=== PATIENT | female | born 1990 | race African-American/Black ===

== ENCOUNTER 2017-01-13 10:37 | Emergency (ER) | payer MEDICAID, SELFPAY ==
--- NOTE | 2017-01-13 10:57 | EDM.PDOC ---
ED HPI GENERAL MEDICAL PROBLEM - General Chief Complaint: Abdominal Pain Stated Complaint: STOMACH CRAMPS Time Seen by Provider: 01/13/17 10:56 Source of Information: Reports: Patient History Limitations: Reports: No Limitations - History of Present Illness INITIAL COMMENTS - FREE TEXT/NARRATIVE: HISTORY AND PHYSICAL: []26-year-old female presenting with abdominal cramping bloating and gas History of Present Illness: []Last menstrual cycle was approximately one month ago. Generally does not have cramping when her period is going to start. Review of Systems: As per history of present illness and below otherwise all systems reviewed and negative. Past medical history: As per history of present illness and as reviewed below otherwise noncontributory. Surgical history: As per history of present illness and as reviewed below otherwise noncontributory. Social history: No reported history of drug or alcohol abuse. Family history: As per history of present illness and as reviewed below otherwise noncontributory. Physical exam: HEENT: Atraumatic, normocehpalic, pupils reactive, negative for conjunctival pallor or scleral icterus, mucous membranes moist, throat clear, neck supple, nontender, trachea midline. Lungs: Clear to auscultation, breath sounds equal bilaterally, chest non tender. Heart: S1S2, regular, negative for clicks, rubs, or JVD. Abdomen: Soft, nondistended, nontender. Negative for masses or hepatossplenmegaly. Mild discomfort with costovertebral tenderness. Pelvis: Stable nontender. Genitourinary: Deferred. Rectal: Deferred Extremities: Atraumatic, negative for cords or calf pain. Neurovascular unremarkable. Neuro: Awake, alert, oriented. Cranial nerves II through XII unremarkable. Cerebellum unremarkable. Motor and sensory unremarkable throughout. Exam nonfocal. Patient states she has no cramping at this time she did let a lot of gas out and is feeling fine. Have discussed with her and her significant other that she is . as her last period was one month ago with the approximately 4 weeks . Patient states"my previous CORPORATE ANALYST has moved out of state and at this time we are planning to have a home with a iron pourer" Have suggested the patient start [id number] vitamins. Any further difficulties would recommend she see an CORPORATE ANALYST. Diagnostics: [Urine urine culture hCG] Therapeutics: [] Impression: [#1 gas pains #2 ] Plan: [#1 ( vitamins #2 she try gatz-inj-klcjwwk products such as Beano.] Definitive disposition and diagnosis as appropriate pending reevaluation and review of above. Lower Abdominal Pain Score (Numeric/FACES): 5 - Related Data Allergies Allergy/AdvReac Type Severity Reaction Status Date / Time morphine Allergy Disorientat Verified 01/13/17 10:47 ion Home Meds: Home Meds . [No Known Home Meds] 11/21/15 [History] Past Medical History - Past Health History Medical/Surgical History: Denies Medical/Surgical History HEENT History: Reports: None Cardiovascular History: Reports: None Respiratory History: Reports: None Gastrointestinal History: Reports: None Genitourinary History: Reports: None CORPORATE ANALYST History: Reports: Musculoskeletal History: Reports: None Neurological History: Reports: None Psychiatric History: Reports: None Endocrine/Metabolic History: Reports: None Hematologic History: Reports: None Immunologic History: Reports: None Oncologic (Cancer) History: Reports: None Dermatologic History: Reports: None - Infectious Disease History Infectious Disease History: Reports: Chicken Pox - Past Surgical History Head Surgeries/Procedures: Reports: None Female Surgical History: Reports: None Social & Family History - Family History Family Medical History: Noncontributory - Tobacco Use Smoking Status *Q: Never Smoker Second Hand Smoke Exposure: No - Caffeine Use Caffeine Use: Reports: None - Recreational Drug Use Recreational Drug Use: No ED ROS GENERAL - Review of Systems Review Of Systems: ROS reveals no pertinent complaints other than HPI. ED EXAM, GI/ABD - Physical Exam Exam: See Below (See dictation) Course - Vital Signs Last Recorded V/S: Last Vital Signs Temp 36.7 C 01/13/17 10:47 Pulse 71 01/13/17 11:39 Resp 18 01/13/17 11:39 BP 110/54 L 01/13/17 11:39 Pulse Ox 100 01/13/17 11:39 - Orders/Labs/Meds Orders: Active Orders 24 hr Category Date Time Status CULTURE URINE [RM] Stat Lab 01/13/17 10:54 Received Labs: Laboratory Tests 01/13/17 01/13/17 Range/Units 10:54 10:54 Urine Color YELLOW Urine Appearance CLEAR Urine pH 6.5 (5.0-8.0) Ur Specific [place] 1.015 (1.001-1.035) Urine Protein NEGATIVE (NEGATIVE) mg/dL Urine Glucose (UA) NEGATIVE (NEGATIVE) mg/dL Urine Ketones NEGATIVE (NEGATIVE) mg/dL Urine Occult Blood NEGATIVE (NEGATIVE) Urine Nitrite NEGATIVE (NEGATIVE) Urine Bilirubin NEGATIVE (NEGATIVE) Urine Urobilinogen 0.2 (<2.0) EU/dL Ur Leukocyte Esterase NEGATIVE (NEGATIVE) Urine RBC 0-1 (0-2/HPF) Urine WBC 0-1 (0-5/HPF) Ur Epithelial Cells OCCASIONAL (NONE-FEW) Urine Bacteria RARE (NEGATIVE) Urine HCG, Qual POSITIVE (NEGATIVE) Departure - Departure Time of Disposition: 11:50 Disposition: Home, Self-Care 01 Condition: Good Clinical Impression: Positive test Abdominal pain Qualifiers: Abdominal location: generalized Qualified Code(s): R10.84 - Generalized abdominal pain - Discharge Information Instructions: Abdominal Pain, Adult, [id number] Referrals: PCP,None [Primary Care Provider] - Forms: ED Department Discharge Additional Instructions: The following information is given to patients seen in the emergency department who are being discharged to home. This information is to outline your options for follow-up care. We provide all patients seen in our emergency department with a follow-up referral. The need for follow-up, as well as the timing and circumstances, are variable depending upon the specifics of your emergency department visit. If you don't have a primary care physician on staff, we will provide you with a referral. We always advise you to contact your personal physician following an emergency department visit to inform them of the circumstance of the visit and for follow-up with them and/or the need for any referrals to a consulting specialist. The emergency department will also refer you to a specialist when appropriate. This referral assures that you have the opportunity for followup care with a specialist. All of these measure are taken in an effort to provide you with optimal care, which includes your followup. Under all circumstances we always encourage you to contact your private physician who remains a resource for coordinating your care. When calling for followup care, please make the office aware that this follow-up is from your recent emergency room visit. If for any reason you are refused follow-up, please contact the [facility] emergency department at and asked to speak to the emergency department charge nurse. Begin xfhq-qqc-awdbuna vitamins Try wilr-zwt-pllyffh product for your gas pains such as Beano Any difficulties with your please contact CORPORATE ANALYST services - My Orders Last 24 Hours: My Active Orders 01/13/17 10:54 CULTURE URINE [] Stat - Assessment/Plan Last 24 Hours: My Active Orders 01/13/17 10:54 CULTURE URINE [] Stat
[2017-01-13 12:30] VITALS: BP 176/86
== END 2017-01-13 13:24 | disposition home or self-care (01) ==
LOC: MW.ED 10:37
DX: R14.1 Gas pain (principal); R10.84 Generalized abdominal pain; Z32.01 Encounter for pregnancy test, result positive; Z88.5 Allergy status to narcotic agent
CPT/HCPCS: 36415; 81001; 81025; 84702; 87086; 99283; 99284

== ENCOUNTER 2018-07-31 16:18 | Emergency (ER) | payer MEDICAID ==
--- NOTE | 2018-07-31 16:32 | EDM.PDOC ---
ED HPI GENERAL MEDICAL PROBLEM - General Chief Complaint: Respiratory Problem Stated Complaint: FEELING FAINT 36 WKS PREG Time Seen by Provider: 07/31/18 16:26 Source of Information: Reports: Patient History Limitations: Reports: No Limitations - History of Present Illness INITIAL COMMENTS - FREE TEXT/NARRATIVE: History of present illness: []Patient is 31 weeks complaining of bilateral hand swelling and pain that is burning and tingling. Patient Mentioned she was short of breath and she was brought back to the ED as a 911. Review of systems: As per history of present illness and below otherwise all systems reviewed and negative. Past medical history: As per history of present illness and as reviewed below otherwise noncontributory. Surgical history: As per history of present illness and as reviewed below otherwise noncontributory. Social history: No reported history of drug or alcohol abuse. Family history: As per history of present illness and as reviewed below otherwise noncontributory. Physical exam: General: Well developed, well nourished in NAD HEENT: Atraumatic, normocephalic, pupils reactive, negative for conjunctival pallor or scleral icterus, mucous membranes moist, throat clear, neck supple, nontender, trachea midline. Lungs: Clear to auscultation, breath sounds equal bilaterally, chest nontender. No rhonchi or wheezing Heart: S1S2, regular, negative for clicks, rubs, or JVD. Abdomen: 31 week abdomen, NABS, Soft, nondistended, nontender. Negative for masses or hepatosplenomegaly. Negative for costovertebral tenderness. Pelvis: Stable nontender. Genitourinary: Deferred. Rectal: Deferred. Extremities: Atraumatic, negative for cords or calf pain. Neurovascular unremarkable. Neuro: Awake, alert, oriented. Cranial nerves II through XII unremarkable. Cerebellum unremarkable. Motor and sensory unremarkable throughout. Exam nonfocal. Skin:warm and dry Diagnostics: Offered patient had CT of her chest to rule out a blood clot. and she declined Therapeutics: Cock-up splint ED Course: Stable Impression: Carpal tunnel syndrome in Prescriptions: Plan: Ice, elevation, wear splint, follow up with DEBT RECOVERY OFFICER return if symptoms worsen. Definitive disposition and diagnosis as appropriate pending reevaluation and review of above. - Related Data Allergies Allergy/AdvReac Type Severity Reaction Status Date / Time morphine Allergy Disorientat Verified 07/31/18 16:22 ion Home Meds: Home Meds . [No Known Home Meds] 11/21/15 [History] Past Medical History - Past Health History Medical/Surgical History: Denies Medical/Surgical History HEENT History: Reports: None Cardiovascular History: Reports: None Respiratory History: Reports: None Gastrointestinal History: Reports: None Genitourinary History: Reports: None PAINT STRIPPER History: Reports: Musculoskeletal History: Reports: None Neurological History: Reports: None Psychiatric History: Reports: None Endocrine/Metabolic History: Reports: None Hematologic History: Reports: None Immunologic History: Reports: None Oncologic (Cancer) History: Reports: None Dermatologic History: Reports: None - Infectious Disease History Infectious Disease History: Reports: Chicken Pox - Past Surgical History Head Surgeries/Procedures: Reports: None Female Surgical History: Reports: None Social & Family History - Family History Family Medical History: Noncontributory - Caffeine Use Caffeine Use: Reports: None ED ROS GENERAL - Review of Systems Review Of Systems: ROS reveals no pertinent complaints other than HPI. ED EXAM, GENERAL - Physical Exam Exam: See Below (See history of present illness) Course - Vital Signs Last Recorded V/S: Last Vital Signs Temp 97.4 F 07/31/18 16:22 Pulse 112 H 07/31/18 16:22 Resp 16 07/31/18 16:22 BP 125/56 L 07/31/18 16:22 Pulse Ox 98 07/31/18 16:22 Departure - Departure Time of Disposition: 16:32 Disposition: Home, Self-Care 01 Condition: Good Clinical Impression: Carpal tunnel syndrome during - Discharge Information *PRESCRIPTION DRUG MONITORING PROGRAM REVIEWED*: No *COPY OF PRESCRIPTION DRUG MONITORING REPORT IN PATIENT TEO: No Referrals: PCP,Unknown [Primary Care Provider] - Additional Instructions: The following information is given to patients seen in the emergency department who are being discharged to home. This information is to outline your options for follow-up care. We provide all patients seen in our emergency department with a follow-up referral. The need for follow-up, as well as the timing and circumstances, are variable depending upon the specifics of your emergency department visit. If you don't have a primary care physician on staff, we will provide you with a referral. We always advise you to contact your personal physician following an emergency department visit to inform them of the circumstance of the visit and for follow-up with them and/or the need for any referrals to a consulting specialist. The emergency department will also refer you to a specialist when appropriate. This referral assures that you have the opportunity for follow-up care with a specialist. All of these measure are taken in an effort to provide you with optimal care, which includes your follow-up. Under all circumstances we always encourage you to contact your private physician who remains a resource for coordinating your care. When calling for follow-up care, please make the office aware that this follow-up is from your recent emergency room visit. If for any reason you are refused follow-up, please contact the [facility] Emergency Department at and asked to speak to the emergency department charge nurse. Follow-up with women's health. Ice to wrist, where splint at night and as much as possible return if worse. [facility] Primary Care - Women's Health [address] [place] [id number]
[2018-07-31 17:02] VITALS: BP 104/62
== END 2018-07-31 17:02 | disposition home or self-care (01) ==
LOC: MW.ED 16:18
DX: O99.353 Diseases of the nervous system complicating pregnancy, third trimester (principal); G56.03 Carpal tunnel syndrome, bilateral upper limbs; Z3A.31 31 weeks gestation of pregnancy
CPT/HCPCS: 99283

== ENCOUNTER 2018-09-27 05:03 | Inpatient (IN) | payer MEDICAID ==
[2018-09-27] MEDS ORDERED: Sodium Chloride 0.9% 10 ML Syringe FLUSH PRN (05:10)
[2018-09-27] MEDS ORDERED: Sodium Chloride 0.9% 2.5 ML Syringe FLUSH PRN (05:10)
[2018-09-27] MEDS ORDERED: Sodium Chloride 0.9% 10 ML SDV IV PRN (05:10)
[2018-09-27] MEDS ORDERED: Citric Acid/Sodium Citrate Solution 30 ML Cup PO ONE (05:10)
[2018-09-27] MEDS ORDERED: Oxytocin/0.9 % Sodium Chloride 30 UNIT/500 ML BAG IV SCH (05:15)
[2018-09-27] MEDS: Lactated Ringers 1,000 ML IV SCH ×2 (05:52→07:09)
--- NOTE | 2018-09-27 07:00 | PCM.PREANE ---
Preanesthetic Assessment - Anesthesia/Transfusion/Family Hx Anesthesia History: Prior Anesthesia Without Reaction Family History of Anesthesia Reaction: No Transfusion History: No Prior Transfusion(s) Intubation History: Unknown - Review of Systems General: No Symptoms Pulmonary: No Symptoms Cardiovascular: No Symptoms Gastrointestinal: No Symptoms Neurological: No Symptoms Other: Reports: None - Physical Assessment Height: 5 ft Weight: 90.265 kg ASA Class: 2 Mental Status: Alert & Oriented x3 Airway Class: Mallampati = 2 Dentition: Reports: Normal Dentition Thyro-Mental Finger Breadths: 3 Mouth Opening Finger Breadths: 3 ROM/Head Extension: Full Lungs: Clear to Auscultation, Normal Respiratory Effort Cardiovascular: Regular Rate, Regular Rhythm - Lab Values: Laboratory Last Values WBC 11.73 K/uL (4.0-11.0) H 09/27/18 05:35 RBC 4.87 M/uL (4.30-5.90) 09/27/18 05:35 Hgb 11.5 g/dL (12.0-16.0) L 09/27/18 05:35 Hct 36.2 % (36.0-46.0) 09/27/18 05:35 MCV 74.3 fL (80.0-98.0) L 09/27/18 05:35 MCH 23.6 pg (27.0-32.0) L 09/27/18 05:35 MCHC 31.8 g/dL (31.0-37.0) 09/27/18 05:35 RDW Std Deviation 49.4 fl (28.0-62.0) 09/27/18 05:35 RDW Coeff of Candido 18 % (11.0-15.0) H 09/27/18 05:35 Plt Count 182 K/uL (150-400) 09/27/18 05:35 Nucleated RBC % 0.0 /100WBC 09/27/18 05:35 Nucleated RBCs # 0 K/uL 09/27/18 05:35 - Allergies Allergies/Adverse Reactions: Allergies Allergy/AdvReac Type Severity Reaction Status Date / Time latex Allergy Itching Verified 09/27/18 06:08 morphine Allergy Disorientat Verified 09/27/18 06:08 ion - Blood Blood Available: No - Anesthesia Plan Pre-Op Medication Ordered: None - Acknowledgements Anesthesia Type Planned: Spinal (general anesthesia back-up plan) PreAnesthesia Questionnaire - Past Health History Medical/Surgical History: Denies Medical/Surgical History HEENT History: Reports: Other (See Below) Other HEENT History: wears glasses Cardiovascular History: Reports: None Respiratory History: Reports: None Gastrointestinal History: Reports: None Genitourinary History: Reports: None FLY RAISER LOCKSTITCH History: Reports: , Spontaneous Musculoskeletal History: Reports: None Neurological History: Reports: None Psychiatric History: Reports: None Endocrine/Metabolic History: Reports: Obesity/BMI 30+ Hematologic History: Reports: None Immunologic History: Reports: None Oncologic (Cancer) History: Reports: None Dermatologic History: Reports: None - Infectious Disease History Infectious Disease History: Reports: Chicken Pox - Past Surgical History Head Surgeries/Procedures: Reports: None HEENT Surgical History: Reports: Oral Surgery, Other (See Below) Other HEENT Surgeries/Procedures: frenulectomy Cardiovascular Surgical History: Reports: None Respiratory Surgical History: Reports: None GI Surgical History: Reports: None Female Surgical History: Reports: None Endocrine Surgical History: Reports: None Neurological Surgical History: Reports: None Musculoskeletal Surgical History: Reports: None Oncologic Surgical History: Reports: None Dermatological Surgical History: Reports: Skin Graft (skin graft- back of rt. shoulder) - SUBSTANCE USE Smoking Status *Q: Never Smoker Recreational Drug Use History: No - HOME MEDS Home Medications: Home Meds Iron 45 mg PO WEEKLY 09/22/18 [History] PNV95/Ferrous Fumarate/FA [ Vitamin Tablet] 1 tab PO DAILY 09/22/18 [ History] - CURRENT (IN HOUSE) MEDS Current Meds: Current Medications Lactated Ringer's (Ringers, Lactated) 1,000 mls @ 500 mls/hr IV BOLUS GIO Last Admin: 09/27/18 05:52 Dose: 500 mls/hr Oxytocin/Sodium Chloride (Oxytocin 30 Unit/500 Ml-Ns) 30 unit in 500 mls @ 250 mls/hr IV TITRATE GIO Sodium Chloride (Saline Flush) 10 ml FLUSH ASDIRECTED PRN PRN Reason: Keep Vein Open Sodium Chloride (Saline Flush) 2.5 ml FLUSH ASDIRECTED PRN PRN Reason: Keep Vein Open Sodium Chloride (Normal Saline) 10 ml IV ASDIRECTED PRN PRN Reason: IV Use Discontinued Medications Citric Acid/Sodium Citrate (Bicitra Solution) 30 ml PO ONETIME ONE Stop: 09/27/18 05:11
[2018-09-27] MEDS ORDERED: fentaNYL 100 MCG/2 ML SDV ONE (07:18)
[2018-09-27] MEDS ORDERED: ePHEDrine 50 MG/ML SDV ONE (08:24)
[2018-09-27] MEDS ORDERED: Oxytocin 10 Units/1 ML SDV ONE (08:24)
[2018-09-27] MEDS ORDERED: Phenylephrine/Normal Saline 100 MCG/ML 10 ML Syringe ONE (08:24)
[2018-09-27] MEDS ORDERED: Methylergonovine 0.2 MG/1 ML Amp ONE (08:33)
[2018-09-27] MEDS ORDERED: Ondansetron 4 MG/2 ML SDV IVPUSH PRN ×2 (09:30→09:39)
[2018-09-27] MEDS ORDERED: Naloxone 0.4 MG/ML Syringe IVPUSH PRN (09:30)
[2018-09-27] MEDS ORDERED: diphenhydrAMINE 50 MG/ML SDV IVPUSH PRN ×2 (09:30→09:39)
[2018-09-27] MEDS ORDERED: Nalbuphine 10 MG/1 ML Vial IVPUSH PRN (09:30)
[2018-09-27] MEDS ORDERED: fentaNYL 100 MCG/2 ML SDV IVPUSH PRN (09:30)
[2018-09-27] MEDS ORDERED: Acetaminophen/oxyCODONE 325-5 MG Tab PO PRN ×2 (09:30→09:39)
[2018-09-27] MEDS ORDERED: Bisacodyl 10 MG Supp RECTAL PRN (09:39)
[2018-09-27] MEDS ORDERED: Lanolin 100% Cream 7 GM Tube TOP PRN (09:39)
[2018-09-27] MEDS ORDERED: Lactated Ringers 1,000 ML IV SCH (09:45)
--- NOTE | 2018-09-27 09:45 | PCM.OPNOTE ---
- General Post-Op/Procedure Note Date of Surgery/Procedure: 09/27/18 Operative Procedure(s): Primary lower segment Findings: Live female delivered at 827am , 7/9 weight pending Pre Op Diagnosis: 27yo @ 39w2d with Breech presentation Post-Op Diagnosis: same Anesthesia Technique: Spinal Primary Surgeon: Buster Soni Fluid Replacement, Intraop: 3,200 Output, Urine Amount: 300 EBL in mLs: 500 Complications: None Condition: Good
[2018-09-27] MEDS: Ketorolac 30 MG/ML SDV IVPUSH SCH ×3 (09:49→21:58)
[2018-09-27] MEDS: Docusate Sodium 100 MG Cap PO SCH (21:59)
--- NOTE | 2018-09-28 03:20 | OR ---
SURGEON: ARIANA ARREAGA DATE OF PROCEDURE:09/27/2018 PREOPERATIVE DIAGNOSES: A 27-year-old G3, P1-0-1-1 at 39 weeks and 2 days, in breech presentation. POSTOPERATIVE DIAGNOSIS: A 27-year-old G3, P1-0-1-1 at 39 weeks and 2 days, in breech presentation. PROCEDURE: Primary lower segment section. IV FLUIDS: 3200. ESTIMATED BLOOD LOSS: 500. URINE OUTPUT: 350. ANESTHESIA: Spinal. FINDINGS: Live female delivered at 8:27 a.m. scores are 7 and 9. Weight is 2910 g. BRIEF HISTORY: The patient is a 27-year-old G2, P1-0-1-1 at 39 weeks and 2 days, who was noted to have breech presentation. The patient was offered an external cephalic version versus a primary . She declined ECV and wanted to proceed with a . She was explained the risks, benefits, and alternatives. She desired to proceed. DESCRIPTION OF PROCEDURE: The patient was taken to the operating room where spinal anesthesia was performed without difficulty. She was prepared and draped in the dorsal supine position with a leftward tilt. A Pfannenstiel skin incision was made with a scalpel and carried down to the fascia with the Bovie. The fascia was incised and extended laterally. The fascia was from the rectus muscles superiorly and inferiorly. The rectus muscle was in the midline down to the level of the pubic symphysis. The peritoneum was entered bluntly. The peritoneum was then stretched upwards and outwards. The bladder reflection was noted. The Sidney retractor was placed. Bladder flap was created. A lower uterine incision was made. The baby was delivered with the breech delivery without difficulty. The cord was clamped and cut. The was handed over to the awaiting biological sciences instructor. The placenta was delivered by manual massage of the uterine fundus. The uterine incision was closed in 2 layers. Hemostasis stasis was noted. The gutters were cleaned. Sidney retractor was removed. The peritoneum was sutured with 2-0 Vicryl. The fascia was closed with 0 Vicryl. The Ly's fascia was closed with plain gut. The skin was closed with 3-0 Monocryl on a Viktor needle. All instrument and pad count were correct x3. The patient tolerated the procedure well, left the OR in stable condition. COURTNEY SIMENTAL /[id number] MTDD
[2018-09-28] MEDS: Ketorolac 30 MG/ML SDV IVPUSH SCH ×2 (03:30→09:35)
--- NOTE | 2018-09-28 08:18 | PCM48HPAN ---
Post Anesthesia Note - EVALUATION WITHIN 48HRS OF ANESTHETIC Vital Signs in Normal Range: Yes Patient Participated in Evaluation: Yes Respiratory Function Stable: Yes Airway Patent: Yes Cardiovascular Function Stable: Yes Hydration Status Stable: Yes Pain Control Satisfactory: Yes Nausea and Vomiting Control Satisfactory: Yes Mental Status Recovered: Yes Resp Rate: 18 - COMMENTS/OBSERVATIONS Free Text/Narrative:: Patient doing well without complaints
[2018-09-28] MEDS: Docusate Sodium 100 MG Cap PO SCH ×2 (09:36→20:54)
--- NOTE | 2018-09-28 10:32 | PCM.PNPP ---
- General Info Date of Service: 09/28/18 Admission Dx/Problem (Free Text): 27yo P2 s/p Primary LTCS POD1 , patient seen at bedside , she denies any complains , she is ambulating voiding and tolerating regular diet Functional Status: Reports: Pain Controlled, Tolerating Diet, Ambulating, Urinating - Review of Systems General: Reports: No Symptoms HEENT: Reports: No Symptoms Pulmonary: Reports: No Symptoms Cardiovascular: Reports: No Symptoms Gastrointestinal: Reports: No Symptoms Genitourinary: Reports: No Symptoms Musculoskeletal: Reports: No Symptoms Skin: Reports: No Symptoms Neurological: Reports: No Symptoms Psychiatric: Reports: No Symptoms - General Info Date of Service: 09/28/18 - Patient Data Vital Signs - Most Recent: Last Vital Signs Temp 36.8 C 09/28/18 07:20 Pulse 106 H 09/28/18 08:00 Resp 18 09/28/18 08:18 BP 108/67 09/28/18 07:20 Pulse Ox 98 09/28/18 08:00 Weight - Most Recent: 90.265 kg I&O - Last 24 Hours: Intake & Output 09/27/18 09/28/18 09/28/18 22:59 06:59 14:59 Output Total 2250 700 Balance -2250 -700 Lab Results - Last 24 Hours: Laboratory Results - last 24 hr 09/27/18 09/28/18 Range/Units 08:28 05:10 Hgb 9.1 L (12.0-16.0) g/dL Hct 28.5 L (36.0-46.0) % Cord VBG pH 7.285 (7.25-7.45) Cord VBG Base Excess -6 (-10--2) Med Orders - Current: Current Medications Bisacodyl (Dulcolax) 10 mg RECTAL ONETIME PRN PRN Reason: Constipation Diphenhydramine HCl (Benadryl) 25 mg IVPUSH Q6H PRN PRN Reason: Itching or Nausea Docusate Sodium (Colace) 100 mg PO BID GIO Last Admin: 09/28/18 09:36 Dose: 100 mg Emollient Ointment (Lansinoh Hpa) 0 gm TOP ASDIRECTED PRN PRN Reason: Sore Nipples Fentanyl (Sublimaze) 50 mcg IVPUSH Q1H PRN PRN Reason: Pain (severe 7-10) Lactated Ringer's (Ringers, Lactated) 1,000 mls @ 500 mls/hr IV BOLUS [facility] Last Admin: 09/27/18 07:09 Dose: 500 mls/hr Oxytocin/Sodium Chloride (Oxytocin 30 Unit/500 Ml-Ns) 30 unit in 500 mls @ 250 mls/hr IV TITRATE [facility] Lactated Ringer's (Ringers, Lactated) 1,000 mls @ 125 mls/hr IV ASDIRECTED [facility] Last Admin: 09/27/18 12:57 Dose: 125 mls/hr Ibuprofen (Motrin) 800 mg PO Q8H PRN PRN Reason: mild pain or fever Nalbuphine HCl (Nubain) 5 mg IVPUSH ASDIRECTED PRN PRN Reason: Itching Ondansetron HCl (Zofran) 4 mg IVPUSH Q6H PRN PRN Reason: Nausea Ondansetron HCl (Zofran) 4 mg IVPUSH Q4H PRN PRN Reason: Nausea/Vomiting Oxycodone/Acetaminophen (Percocet 325-5 Mg) 2 tab PO Q6H PRN PRN Reason: Pain (moderate 4-6) Oxycodone/Acetaminophen (Percocet 325-5 Mg) 1 tab PO Q4H PRN PRN Reason: Pain (moderate 4-6) Oxycodone/Acetaminophen (Percocet 325-5 Mg) 2 tab PO Q4H PRN PRN Reason: Pain (moderate 4-6) Sodium Chloride (Saline Flush) 10 ml FLUSH ASDIRECTED PRN PRN Reason: Keep Vein Open Sodium Chloride (Saline Flush) 2.5 ml FLUSH ASDIRECTED PRN PRN Reason: Keep Vein Open Sodium Chloride (Normal Saline) 10 ml IV ASDIRECTED PRN PRN Reason: IV Use Discontinued Medications Citric Acid/Sodium Citrate (Bicitra Solution) 30 ml PO ONETIME ONE Stop: 09/27/18 05:11 Last Admin: 09/27/18 07:10 Dose: 30 ml Diphenhydramine HCl (Benadryl) 25 mg IVPUSH Q4H PRN PRN Reason: Itching Stop: 09/28/18 09:30 Ephedrine Sulfate (Ephedrine Sulfate) Confirm Administered Dose 50 mg .ROUTE .STK-MED ONE Stop: 09/27/18 08:25 Fentanyl (Sublimaze) Confirm Administered Dose 100 mcg .ROUTE .STK-MED ONE Stop: 09/27/18 07:19 Ketorolac Tromethamine (Toradol) 30 mg IVPUSH Q6H GIO Stop: 09/28/18 09:46 Last Admin: 09/28/18 09:35 Dose: 30 mg Methylergonovine Maleate (Methergine) Confirm Administered Dose 0.2 mg .ROUTE .STK-MED ONE Stop: 09/27/18 08:34 Last Admin: 09/27/18 13:40 Dose: Not Given Naloxone HCl (Narcan) 0.1 mg IVPUSH ONETIME PRN PRN Reason: Respiratory Depression Stop: 09/28/18 09:30 Oxytocin (Pitocin) Confirm Administered Dose 20 unit .ROUTE .STK-MED ONE Stop: 09/27/18 08:25 Phenylephrine HCl (Phenylephrine In Ns 100 Mcg/Ml) Confirm Administered Dose 2 mg .ROUTE .STK-MED ONE Stop: 09/27/18 08:25 - Interaction Support Person: Significant Other - Recovery Exam Fundal Tone: Firm Fundal Level: 1 Fingerbreadths Below Umbilicus Fundal Placement: Midline Lochia Amount: Scant Lochia Color: Rubra/Red Perineum Description: Intact, Minimal Bruising/Swelling Episiotomy/Laceration: None Bladder Status: Voiding Urinary Elimination: Voided - Exam General: Alert HEENT: Pupils Equal Neck: Supple Lungs: Clear to Auscultation Cardiovascular: Regular Rate, Regular Rhythm Extremities: Normal Inspection Wound/Incisions: Dressing Dry and Intact Neurological: No New Focal Deficit Psy/Mental Status: Alert - Problem List & Annotations (1) delivery delivered SNOMED Code(s): 968098276 Code(s): O82 - ENCOUNTER FOR DELIVERY WITHOUT INDICATION Status: Acute Current Visit: Yes - Problem List Review Problem List Initiated/Reviewed/Updated: Yes - My Orders Last 24 Hours: My Active Orders 09/27/18 09:39 Patient Status [ADT] Routine Antiembolic Devices [RC] PER UNIT ROUTINE May Shower [RC] ASDIRECTED RT Incentive Spirometry [RC] Q2HWA Acetaminophen/oxyCODONE [Percocet 325-5 MG] 1 tab PO Q4H PRN Acetaminophen/oxyCODONE [Percocet 325-5 MG] 2 tab PO Q4H PRN Bisacodyl [Dulcolax] 10 mg RECTAL ONETIME PRN Ibuprofen [Motrin] 800 mg PO Q8H PRN Lanolin [Lansinoh HPA] See Dose Instructions TOP ASDIRECTED PRN Ondansetron [Zofran] 4 mg IVPUSH Q4H PRN diphenhydrAMINE [Benadryl] 25 mg IVPUSH Q6H PRN Assess Lochia [WOMSER] Per Unit Routine Assess Uterine Involution [WOMSER] Per Unit Routine Breast Pump [WOMSER] Per Unit Routine Peripheral IV Discontinue [OM.PC] Routine Sequential Compression Device [OM.PC] Per Unit Routine 09/27/18 09:45 Lactated Ringers [Ringers, Lactated] 1,000 ml IV ASDIRECTED 09/27/18 21:00 Docusate Sodium [Colace] 100 mg PO BID 09/27/18 Lunch Regular Diet [DIET] - Assessment Assessment:: 27yo P2 s/p Primary LTCS for Breech POD1 , fair pain control , she is ambulating voiding and tolerating regular diet Normal lochia - Plan Plan:: Routine care Pain control Incentive spirometry Encourage ambulation Encourage discharge tomorrow
[2018-09-28] MEDS: Acetaminophen/oxyCODONE 325-5 MG Tab PO PRN ×2 (12:40→20:53)
[2018-09-28] MEDS: Ibuprofen 800 MG Tab PO PRN (18:58)
[2018-09-29] MEDS: Ibuprofen 800 MG Tab PO PRN (04:23)
--- NOTE | 2018-09-29 07:28 | PCM.DCSUM1 ---
Discharge Summary - Hospital Course Free Text/Narrative:: POD#2 primary LTCS for breech. Doing well. Diagnosis: Stroke: No - Discharge Data Discharge Date: 09/29/18 Discharge Disposition: Home, Self-Care 01 Condition: Good - Patient Summary/Data Operative Procedure(s) Performed: Primary lower segment Recommended Follow-up Testing/Procedures: 2w incision check. Pt may choose to be seen in the [facility]. - Patient Instructions Diet: Heart Healthy Diet, Usual Diet as Tolerated Activity: No Lifting Over 10 Pounds, No Lifting Over 20 Pounds, Rest and Relax Today (No intercourse, doucing, tampons until after your 6 week check.) Driving: Do Not Drive (Drive only when pain-free, and on no medications for pain.) Showering/Bathing: May Shower Wound/Incision Care: Keep Operative Site/Wound Site Clean and Dry Notify Provider of: Fever, Increased Pain, Swelling and Redness, Drainage Other/Special Instructions: Nothing per vagina for 6 weeks. Call office if fever over 101 F, uncontrolled pain or bleeding more than a large pad per hour. May use percocet or ibuprofen or Tylenol for pain. Continue to take vitamins while . visit in 2 weeks and 6 weeks - Discharge Plan *PRESCRIPTION DRUG MONITORING PROGRAM REVIEWED*: No *COPY OF PRESCRIPTION DRUG MONITORING REPORT IN PATIENT TEO: No Prescriptions/Med Rec: Acetaminophen/oxyCODONE [Percocet 325-5 MG] 1 - 2 tab PO Q4H PRN 5 Days #20 tablet PRN Reason: Pain (Moderate 4-6) Ibuprofen [Motrin] 800 mg PO Q8H PRN 5 Days #30 tablet PRN Reason: mild pain or fever Home Medications: Home Meds Iron 45 mg PO WEEKLY 09/22/18 [History] PNV95/Ferrous Fumarate/FA [ Vitamin Tablet] 1 tab PO DAILY 09/22/18 [ History] Acetaminophen/oxyCODONE [Percocet 325-5 MG] 1 - 2 tab PO Q4H PRN 5 Days #20 tablet 09/28/18 [Rx] Ibuprofen [Motrin] 800 mg PO Q8H PRN 5 Days #30 tablet 09/28/18 [Rx] Referrals: [facility] [Outside] - 11/07/18 11:15 am (6 week post ) Buster Soni MD [Physician] - 10/11/18 11:00 am (2 week ) - Discharge Summary/Plan Comment DC Time >30 min.: No - General Info Date of Service: 09/29/18 Functional Status: Reports: Pain Controlled, Tolerating Diet, Ambulating, Urinating - Review of Systems General: Reports: No Symptoms Gastrointestinal: Reports: No Symptoms Genitourinary: Reports: No Symptoms Psychiatric: Reports: No Symptoms - Patient Data Vitals - Most Recent: Last Vital Signs Temp 36.6 C 09/29/18 00:15 Pulse 90 09/29/18 00:15 Resp 16 09/29/18 00:15 BP 110/56 L 09/29/18 00:15 Pulse Ox 95 09/29/18 00:15 Weight - Most Recent: 90.265 kg Med Orders - Current: Current Medications Bisacodyl (Dulcolax) 10 mg RECTAL ONETIME PRN PRN Reason: Constipation Diphenhydramine HCl (Benadryl) 25 mg IVPUSH Q6H PRN PRN Reason: Itching or Nausea Docusate Sodium (Colace) 100 mg PO BID [facility] [place] Last Admin: 09/28/18 20:54 Dose: 100 mg Emollient Ointment (Lansinoh Hpa) 0 gm TOP ASDIRECTED PRN PRN Reason: Sore Nipples Fentanyl (Sublimaze) 50 mcg IVPUSH Q1H PRN PRN Reason: Pain (severe 7-10) Lactated Ringer's (Ringers, Lactated) 1,000 mls @ 500 mls/hr IV BOLUS [facility] Last Admin: 09/27/18 07:09 Dose: 500 mls/hr Oxytocin/Sodium Chloride (Oxytocin 30 Unit/500 Ml-Ns) 30 unit in 500 mls @ 250 mls/hr IV TITRATE [facility] Lactated Ringer's (Ringers, Lactated) 1,000 mls @ 125 mls/hr IV ASDIRECTED [facility] [place] Last Admin: 09/27/18 12:57 Dose: 125 mls/hr Ibuprofen (Motrin) 800 mg PO Q8H PRN PRN Reason: mild pain or fever Last Admin: 09/29/18 04:23 Dose: 800 mg Nalbuphine HCl (Nubain) 5 mg IVPUSH ASDIRECTED PRN PRN Reason: Itching Ondansetron HCl (Zofran) 4 mg IVPUSH Q6H PRN PRN Reason: Nausea Ondansetron HCl (Zofran) 4 mg IVPUSH Q4H PRN PRN Reason: Nausea/Vomiting Oxycodone/Acetaminophen (Percocet 325-5 Mg) 2 tab PO Q6H PRN PRN Reason: Pain (moderate 4-6) Oxycodone/Acetaminophen (Percocet 325-5 Mg) 1 tab PO Q4H PRN PRN Reason: Pain (moderate 4-6) Last Admin: 09/28/18 20:53 Dose: 1 tab Oxycodone/Acetaminophen (Percocet 325-5 Mg) 2 tab PO Q4H PRN PRN Reason: Pain (moderate 4-6) Sodium Chloride (Saline Flush) 10 ml FLUSH ASDIRECTED PRN PRN Reason: Keep Vein Open Sodium Chloride (Saline Flush) 2.5 ml FLUSH ASDIRECTED PRN PRN Reason: Keep Vein Open Sodium Chloride (Normal Saline) 10 ml IV ASDIRECTED PRN PRN Reason: IV Use Discontinued Medications Citric Acid/Sodium Citrate (Bicitra Solution) 30 ml PO ONETIME ONE Stop: 09/27/18 05:11 Last Admin: 09/27/18 07:10 Dose: 30 ml Diphenhydramine HCl (Benadryl) 25 mg IVPUSH Q4H PRN PRN Reason: Itching Stop: 09/28/18 09:30 Ephedrine Sulfate (Ephedrine Sulfate) Confirm Administered Dose 50 mg .ROUTE .STK-MED ONE Stop: 09/27/18 08:25 Fentanyl (Sublimaze) Confirm Administered Dose 100 mcg .ROUTE .STK-MED ONE Stop: 09/27/18 07:19 Ketorolac Tromethamine (Toradol) 30 mg IVPUSH Q6H GIO Stop: 09/28/18 09:46 Last Admin: 09/28/18 09:35 Dose: 30 mg Methylergonovine Maleate (Methergine) Confirm Administered Dose 0.2 mg .ROUTE .STK-MED ONE Stop: 09/27/18 08:34 Last Admin: 09/27/18 13:40 Dose: Not Given Naloxone HCl (Narcan) 0.1 mg IVPUSH ONETIME PRN PRN Reason: Respiratory Depression Stop: 09/28/18 09:30 Oxytocin (Pitocin) Confirm Administered Dose 20 unit .ROUTE .STK-MED ONE Stop: 09/27/18 08:25 Phenylephrine HCl (Phenylephrine In Ns 100 Mcg/Ml) Confirm Administered Dose 2 mg .ROUTE .STK-MED ONE Stop: 09/27/18 08:25 - Exam General: Reports: Alert, Oriented, Cooperative, No Acute Distress Neck: Reports: Supple Lungs: Reports: Normal Respiratory Effort GI/Abdominal Exam: Soft, Non-Tender, Other (uterus firm and non-tender) Back Exam: Reports: Other (No CVAT) Extremities: Normal Inspection, Non-Tender Wound/Incisions: Reports: Healing Well, No Drainage (Wound appears healthy. Wound cares and precautions discussed.) Psy/Mental Status: Reports: Alert, Normal Affect, Normal Mood
[2018-09-29 07:37] VITALS: BP 118/68
[2018-09-29] MEDS: Docusate Sodium 100 MG Cap PO SCH (09:13)
[2018-09-29] MEDS: Acetaminophen/oxyCODONE 325-5 MG Tab PO PRN (11:06)
== END 2018-09-29 12:15 | disposition home or self-care (01) | DRG 788 ==
LOC: MW.OB 05:03 → UNDOADMIN 05:03 → MW.OB 08:27
PROVIDERS: ADMIT Obstetrics & Gynecology; ATTEND Obstetrics & Gynecology
PROC: 10D00Z1 Extraction of Products of Conception, Low, Open Approach (ICD-10-PCS; principal; 2018-09-27)
DX: O32.1XX0 Maternal care for breech presentation, not applicable or unspecified (principal); Z3A.39 39 weeks gestation of pregnancy; Z37.0 Single live birth
CPT/HCPCS: 36415; 59025; 82803; 85014; 85018; 85027; 86850; 86870; 86900; 86901; 86902; 86920; 86921; 86922; A9270-GY; J1885; J2370; J2590; J3010; J7120

== ENCOUNTER 2021-07-28 06:35 | Inpatient (IN) | payer MEDICAID ==
[2021-07-28] MEDS ORDERED: Sodium Chloride 0.9% 10 ML Syringe FLUSH PRN (07:09)
[2021-07-28] MEDS ORDERED: Butorphanol 1 MG/ML SDV IVPUSH PRN (07:09)
[2021-07-28] MEDS ORDERED: Sodium Chloride 0.9% 20 ML SDV IV PRN (07:09)
[2021-07-28] MEDS ORDERED: Methylergonovine 0.2 MG/1 ML Amp IM PRN (07:09)
[2021-07-28] MEDS ORDERED: Ondansetron 4 MG/2 ML SDV IVPUSH PRN ×2 (07:09→18:17)
[2021-07-28] MEDS ORDERED: Misoprostol 200 MCG Tab PO PRN (07:09)
[2021-07-28] MEDS ORDERED: Sodium Chloride 0.9% 2.5 ML Syringe FLUSH PRN (07:09)
[2021-07-28] MEDS ORDERED: Carboprost Tromethamine 250 MCG/1 ML Amp IM PRN (07:09)
[2021-07-28] MEDS ORDERED: Lidocaine 1% 50 ML MDV INJECT PRN (07:09)
[2021-07-28] MEDS ORDERED: Water For Irrigation,Sterile 1,000 ML Container IRR PRN (07:09)
[2021-07-28] MEDS ORDERED: Tranexamic Acid 1,000 MG in Sodium Chloride 0.9% 100 ML IV PRN (07:09)
[2021-07-28] MEDS ORDERED: Oxytocin/0.9 % Sodium Chloride 30 UNIT/500 ML BAG IV SCH (07:15)
[2021-07-28] MEDS: Lactated Ringers 1,000 ML IV SCH ×3 (07:20→15:18)
[2021-07-28] MEDS ORDERED: Ropivacaine 100 ML ONE (07:47)
[2021-07-28] MEDS ORDERED: ePHEDrine 50 MG/ML SDV IVPUSH PRN ×3 (08:14→18:17)
[2021-07-28] MEDS ORDERED: Ropivacaine 200 MG in Premix Bag 1 BAG EPIDUR SCH (08:15)
[2021-07-28] MEDS ORDERED: Naloxone 0.4 MG/ML SDV IVPUSH PRN (18:17)
[2021-07-28] MEDS ORDERED: HYDROmorphone 1 MG/ML Syringe IVPUSH PRN (18:17)
[2021-07-28] MEDS ORDERED: Albuterol 0.083% 2.5 MG/3 ML Neb Soln NEB PRN (18:17)
[2021-07-28] MEDS ORDERED: Morphine 4 MG/ML VIAL IVPUSH PRN (18:17)
[2021-07-28] MEDS ORDERED: Metoclopramide 10 MG/2 ML SDV IVPUSH PRN (18:17)
[2021-07-28] MEDS ORDERED: fentaNYL 100 MCG/2 ML SDV IVPUSH PRN (18:17)
[2021-07-28] MEDS ORDERED: Bisacodyl 10 MG Supp RECTAL PRN (18:37)
[2021-07-28] MEDS ORDERED: Acetaminophen 500 MG Tab PO PRN (18:37)
[2021-07-28] MEDS ORDERED: Lanolin 100% Cream 7 GM Tube TOP PRN (18:37)
[2021-07-28] MEDS ORDERED: Benzocaine/Menthol 20%-0.5% Spray 78 GM Cannister TOP PRN (18:37)
[2021-07-28] MEDS ORDERED: Docusate Sodium 100 MG Cap PO PRN (18:37)
[2021-07-28] MEDS ORDERED: oxyCODONE 5 MG Tab PO PRN (18:37)
[2021-07-28] MEDS: Ibuprofen 800 MG Tab PO PRN (20:07)
[2021-07-28] MEDS: Witch Hazel Medicated Pads 40/Jar TOP PRN (20:08)
[2021-07-29] MEDS: Ibuprofen 800 MG Tab PO PRN ×2 (07:28→19:49)
[2021-07-29] MEDS: Witch Hazel Medicated Pads 40/Jar TOP PRN (19:49)
[2021-07-30] MEDS: Ibuprofen 800 MG Tab PO PRN (06:25)
[2021-07-30 16:13] VITALS: BP 121/67; PULSE 86
== END 2021-07-30 18:00 | disposition home or self-care (01) | DRG 805 ==
LOC: MW.OB 06:35 → MW.OBCHECK 06:35 → MW.OB 07:10 → MW.OBCHECK 07:10 → OBSVTOIN 18:15 → MW.OB 21:15
PROVIDERS: ADMIT Obstetrics & Gynecology; ATTEND Obstetrics & Gynecology
PROC: 10E0XZZ Delivery of Products of Conception, External Approach (ICD-10-PCS; principal; 2021-07-28)
PROC: 3E0R3BZ Introduction of Anesthetic Agent into Spinal Canal, Percutaneous Approach (ICD-10-PCS; 2021-07-28)
PROC: 0HQ9XZZ Repair Perineum Skin, External Approach (ICD-10-PCS; 2021-07-28)
PROC: 00HU33Z Insertion of Infusion Device into Spinal Canal, Percutaneous Approach (ICD-10-PCS; 2021-07-28)
PROC: 10907ZC Drainage of Amniotic Fluid, Therapeutic from Products of Conception, Via Natural or Artificial Opening (ICD-10-PCS; 2021-07-28)
PROC: 4A1HXCZ Monitoring of Products of Conception, Cardiac Rate, External Approach (ICD-10-PCS; 2021-07-28)
DX: O48.0 Post-term pregnancy (principal); O45.93 Premature separation of placenta, unspecified, third trimester; Z37.0 Single live birth; O99.214 Obesity complicating childbirth; E66.9 Obesity, unspecified; O77.0 Labor and delivery complicated by meconium in amniotic fluid; O70.0 First degree perineal laceration during delivery; O76 Abnormality in fetal heart rate and rhythm complicating labor and delivery; Z3A.40 40 weeks gestation of pregnancy; Z91.040 Latex allergy status; Z88.5 Allergy status to narcotic agent; Z20.822 Contact with and (suspected) exposure to COVID-19
CPT/HCPCS: 01967; 36415; 51702; 82803; 85014; 85018; 85027; 86592; 86850; 86900; 86901; 86902; 86920; 86921; 86922; A9270-GY; J2590; J2795; J7120; U0002